=== PATIENT | female | born 1975 | race Caucasian/White ===

== ENCOUNTER 2021-04-09 15:26 | Inpatient (IN) | payer OTHER ==
[~2021-04-09] VITALS: Ht 167.6 cm; Wt 63.5 kg
[2021-04-12] MEDS ORDERED: PERCOCET 5-3251 EACH PO (11:20)
== END 2021-04-12 17:01 | disposition home or self-care (01) | DRG 330 ==
LOC: ER 15:26 → SURH 18:25 → SEC-K 18:25 → SURH 04-10 04:39 → SURG 04-11 11:03
PROVIDERS: ADMIT Surgery; ATTEND Surgery
PROC: 0DTN4ZZ Resection of Sigmoid Colon, Percutaneous Endoscopic Approach (ICD-10-PCS; 2021-04-10)
PROC: 07TC4ZZ Resection of Pelvis Lymphatic, Percutaneous Endoscopic Approach (ICD-10-PCS; 2021-04-10)
PROC: 3E0F7SF Introduction of Other Gas into Respiratory Tract, Via Natural or Artificial Opening (ICD-10-PCS; 2021-04-10)
PROC: 0DTP4ZZ Resection of Rectum, Percutaneous Endoscopic Approach (ICD-10-PCS; principal; 2021-04-10 16:30)
DX: C18.7 Malignant neoplasm of sigmoid colon (principal); K56.699 Other intestinal obstruction unspecified as to partial versus complete obstruction; F43.10 Post-traumatic stress disorder, unspecified; Z20.822 Contact with and (suspected) exposure to COVID-19

== ENCOUNTER 2021-05-13 05:14 | Day surgery (SDC) | payer OTHER ==
[~2021-05-13 05:14] MED LIST: EPIDIOLEX100 MG/1 M PO; PERCOCET 5-3251 EACH PO
[2021-05-13] MEDS ORDERED: ULTRAM50 MG PO (09:13)
== END 2021-05-13 11:10 | disposition home or self-care (01) ==
LOC: CIR.AMB 05:14
PROVIDERS: ATTEND Surgery
DX: C18.7 Malignant neoplasm of sigmoid colon (principal); Z20.822 Contact with and (suspected) exposure to COVID-19
CPT/HCPCS: 36561; C1751

== ENCOUNTER 2021-11-25 06:00 | Day surgery (SDC) | payer OTHER ==
[~2021-11-25] VITALS: Ht 76.2 cm; Wt 59.0 kg
[~2021-11-25 06:00] MED LIST changes: +ULTRAM50 MG PO
[2021-11-25] MEDS ORDERED: ULTRAM50 MG PO (10:00)
== END 2021-11-25 10:40 | disposition home or self-care (01) ==
LOC: CIR.AMB 06:00
PROVIDERS: ATTEND Surgery
DX: C18.7 Malignant neoplasm of sigmoid colon (principal); Z20.822 Contact with and (suspected) exposure to COVID-19
CPT/HCPCS: 36561; C1788

== ENCOUNTER 2021-12-16 07:22 | Outpatient (CLI) | payer OTHER | END 2021-12-16 15:54 | disposition home or self-care (01) | LOC: TOM 07:22 | PROVIDERS: ATTEND Internal Medicine | DX: C18.7 Malignant neoplasm of sigmoid colon (principal) | CPT/HCPCS: 71270; 74177; Q9965 ==